=== PATIENT | male | born 1975 | race Caucasian/White ===

== ENCOUNTER 2017-02-23 14:42 | Emergency (ER) | payer BC, OTHER ==
[~2017-02-23] VITALS: Wt 80.0 kg
[~2017-02-23 14:42] MED LIST: CYCL-319 PO; IBUP400T22 PO; TRAM50TA2 PO
--- NOTE | 2017-02-23 15:33 | ERA ---
ER Documentation Chief Complaint Date/Time DATE: 02/23/17 TIME: 15:31 Chief Complaint CHEST PAIN FOR THE PAST FEW WKS. GETTING WORSE TODAY. NO N/V. HPI The patient is a 41-year-old male, presenting to the ER because of intermittent chest pain for more than 2 weeks, worse last night, however it is better now only 1/10. The pain is better with resting, worse with movement. He denies any chest pain with exertion of vomiting or diaphoresis. He has similar symptoms previously. He denies fever, chills, neck pain, dyspnea, abdominal pain, vomiting, dysuria, diarrhea. He smokes a pack a day, drinks socially, denies illicit drug Past medical history: None Past surgical history: Hemorrhoidectomy ROS All systems reviewed and are negative except as per history of present illness. Medications Home Meds Discontinued Reported Medications Ibuprofen* (Ibuprofen*) 400 Mg Tablet, 400 MG PO Q6H Y for PAIN, TAB 04/12/16 Discontinued Scripts Tramadol HCl (Tramadol HCl) 50 Mg Tablet, 25 MG PO Q8, #15 TAB Prov:PATITO VO 04/12/16 Cyclobenzaprine Hcl* (Cyclobenzaprine Hcl*) 10 Mg Tablet, 10 MG PO TID, #15 TAB Prov:PATITO VO 04/12/16 Allergies Allergies: Coded Allergies: No Known Allergy (Verified , 02/23/17) PER WRITTEN ORDER PMhx/Soc History of Surgery: Yes (NASAL SURGERY AND LEFT ELBOW) Anesthesia Reaction: No Hx Neurological Disorder: No Hx Respiratory Disorders: No Hx Cardiac Disorders: No Hx Psychiatric Problems: No Hx Miscellaneous Medical Probl: No Hx Alcohol Use: Yes (OCASSIONAL) Hx Substance Use: No Hx Tobacco Use: Yes (18 CIG A DAY) Physical Exam Vitals Vital Signs Date Time Temp Pulse Resp B/P Pulse Ox O2 Delivery O2 Flow Rate FiO2 02/23/17 14:43 98.6 84 20 130/84 98 Physical Exam Const: No acute distress. Head: Atraumatic. Eyes: Normal Conjunctiva. ENT: Normal External Ears, Nose and Mouth. Neck: Full range of motion. No meningismus. Resp: Clear to auscultation bilaterally. Cardio: Regular rate and rhythm, no murmurs. Abd: Soft, non distended, normal bowel sounds, non tender. Skin: No petechiae or rashes. Back: No midline or flank tenderness. Ext: No cyanosis, or edema. Neur: Awake and alert. No focal deficit Psych: Normal Mood and Affect. Result Diagram: 02/23/17 1525 02/23/17 1525 Results 24 hrs Laboratory Tests Test 02/23/17 15:25 02/23/17 18:00 White Blood Count 8.510^3/ul Red Blood Count 4.9710^6/ul Hemoglobin 15.7g/dl Hematocrit 44.2% Mean Corpuscular Volume 88.9fl Mean Corpuscular Hemoglobin 31.6pg Mean Corpuscular Hemoglobin Concent 35.5g/dl Red Cell Distribution Width 12.9% Platelet Count 43803^3/UL Mean Platelet Volume 9.9fl Neutrophils % 69.3% Lymphocytes % 20.5% Monocytes % 6.7% Eosinophils % 2.4% Basophils % 0.6% Nucleated Red Blood Cells % 0.0/100WBC Neutrophils # 5.910^3/ul Lymphocytes # 1.710^3/ul Monocytes # 0.610^3/ul Eosinophils # 0.210^3/ul Basophils # 0.110^3/ul Nucleated Red Blood Cells # 0.010^3/ul Prothrombin Time 13.5Sec Prothrombin Time Ratio 1.1 INR International Normalized Ratio 1.03 Activated Partial Thromboplast Time 26.9Sec Sodium Level 139mmol/L Potassium Level 4.2mmol/L Chloride Level 104mmol/L Carbon Dioxide Level 25mmol/L Anion Gap 14 Blood Urea Nitrogen 13mg/dl Creatinine 0.84mg/dl Glucose Level 103mg/dl Calcium Level 9.9mg/dl Troponin I < 0.012ng/ml < 0.012ng/ml Procedures/MDM EKG: Read by emergency physician at 2:48 pm Rate/Rhythm: Normal Sinus Rhythm 89 beats/min QRS, ST, T-waves: Nonspecific ST and T abnormality,no PVC, RWA Impression: Abnormal EKG EKG: Read by emergency physician at 3:33 pm Rate/Rhythm: Normal Sinus Rhythm 76 beats/min QRS, ST, T-waves: Nonspecific ST and T abnormality, no PVC, RWA Impression: Abnormal EKG [place] [id number] Radiology Main Line: [phone] DIAGNOSTIC IMAGING REPORT Patient: NUSRAT BHAKTA : 1975 Age: 41 Sex: M [id number] DOS: 02/23/17 1506 Ordering MD: RAYMON OBRIEN MD Location: E/R Room/Bed: PROCEDURE: XR Chest AP portable CLINICAL INDICATION: Left-sided chest pain TECHNIQUE: An AP portable radiograph of the chest was submitted. COMPARISON: 04/12/2016 FINDINGS: Support Hardware: None Cardiovascular: The cardiovascular silhouette appears unremarkable. Lung Connor: A fat pad is again suggested off the cardiac apex. No alveolar infiltrate or nodule is evident. Pleural Spaces: No pneumothorax or pleural effusion is identified. Osseous Structures: The suboptimally visualized osseous elements are grossly intact. Soft Tissues: The soft tissues appear unremarkable. IMPRESSION: Stable and unremarkable portable chest. Physician Eddie Date Time Electronically viewed and signed by Leelee Scott Physician on 02/23/2017 16:14 RH/ CC: RAYMON OBRIEN MD MEDICAL MAKING DECISION: The patient is a 41-year-old male, presenting with acute chest pain of unclear etiology. 2 EKG and 2 troponin are negative. The differential diagnoses considered include but are not limited to acute coronary syndrome, acute myocardial infarction, pericarditis, pulmonary embolism, aortic dissection, pneumonia, pleural effusion, pneumothorax, GERD, chest wall pain. Departure Diagnosis: Primary Impression: Chest pain Condition: Good Comments The patient presents with chest pain and I considered pulmonary embolism, aortic dissection, pneumothorax among other diagnoses. Evaluation for acute coronary syndrome was performed. The HEART score (www.mdcalc.com) was utilized for risk stratification and found to be <= 3. Repeat EKG and troponin @ 3 hours were unchanged. Based on this evaluation the patients risk of major adverse cardiac events is <1%. Shared decision making occurred with patient and the decision has been made to discharge the patient for outpatient evaluation and functional study within 72 hours. The patient's blood pressure was elevated (>120/80) but appears stable without evidence of hypertension emergency or urgency. The patient was counseled about the risks of hypertension and urged to pursue outpatient monitoring and therapy within a week with their primary care physician. I discussed the findings with the patient. I advised the patient to follow-up with the primary physician for referral to cardiology in about 1-2 days, sooner if needed and return if any concern. RAYMON OBRIEN MD Feb 23, 2017 15:33
[2017-02-23 15:40] LABS: ADD SCAN DIFF NO
[2017-02-23 15:42] LABS: BASOPHIL # 0.1 10^3/ul (0.0-0.1); BASOPHILS % 0.6 % (0.0-2.0); EOSINOPHILS # 0.2 10^3/ul (0.0-0.5); EOSINOPHILS % 2.4 % (0.0-7.0); HEMATOCRIT 44.2 % (42.0-52.0); HEMOGLOBIN 15.7 g/dl (14.0-18.0); LYMPHOCYTES # 1.7 10^3/ul (0.8-2.9); LYMPHOCYTES % 20.5 % (15.0-51.0); MEAN CORPUSCULAR HEMOGLOBIN 31.6 pg (29.0-33.0); MEAN CORPUSCULAR HGB CONC 35.5 g/dl (32.0-37.0); MEAN CORPUSCULAR VOLUME 88.9 fl (82.0-101.0); MEAN PLATELET VOLUME 9.9 fl (7.4-10.4); MONOCYTE # 0.6 10^3/ul (0.3-0.9); MONOCYTES % 6.7 % (0.0-11.0); NEUTROPHIL # 5.9 10^3/ul (1.6-7.5); NEUTROPHILS % 69.3 % (39.0-77.0); PLATELET COUNT 195 10^3/UL (140-415); RED BLOOD COUNT 4.97 10^6/ul (4.70-6.10); RED CELL DISTRIBUTION WIDTH 12.9 % (11.5-14.5); WHITE BLOOD COUNT 8.5 10^3/ul (4.8-10.8)
[2017-02-23 15:51] LABS: INR 1.03; PROTIME 13.5 Sec (12.2-14.2); PT RATIO 1.1
[2017-02-23 15:52] LABS: CHLORIDE 104 mmol/L (97-110); PARTIAL THROMBOPLASTIN TIME 26.9 Sec (25.0-35.0); SODIUM 139 mmol/L (135-144)
[2017-02-23 15:53] LABS: POTASSIUM 4.2 mmol/L (3.5-5.1)
[2017-02-23 15:55] LABS: CREATININE 0.84 mg/dl (0.61-1.24)
[2017-02-23 15:56] LABS: ANION GAP 14 (8-16); BLOOD UREA NITROGEN 13 mg/dl (7-20); CALCIUM 9.9 mg/dl (8.4-10.2); CARBON DIOXIDE 25 mmol/L (21-31); GLUCOSE 103 mg/dl (70-220)
[2017-02-23 16:09] LABS: TROPONIN-I < 0.012 ng/ml (0.00-0.12)
--- NOTE | 2017-02-23 16:14 | RADRPT ---
PROCEDURE: XR Chest AP portable CLINICAL INDICATION: Left-sided chest pain TECHNIQUE: An AP portable radiograph of the chest was submitted. COMPARISON: 04/12/2016 FINDINGS: Support Hardware: None Cardiovascular: The cardiovascular silhouette appears unremarkable. Lung Connor: A fat pad is again suggested off the cardiac apex. No alveolar infiltrate or nodule is evident. Pleural Spaces: No pneumothorax or pleural effusion is identified. Osseous Structures: The suboptimally visualized osseous elements are grossly intact. Soft Tissues: The soft tissues appear unremarkable. IMPRESSION: Stable and unremarkable portable chest. Physician Eddie Date Time Electronically viewed and signed by Physician Eddie on 02/23/2017 16:14 /
[2017-02-23 19:36] VITALS: BP 122/72; PULSE 76; RESP 20; TEMP 98.6
== END 2017-02-23 19:37 | disposition home or self-care (01) ==
LOC: E/R 14:42
DX: R07.9 Chest pain, unspecified (principal); F17.210 Nicotine dependence, cigarettes, uncomplicated
CPT/HCPCS: 36415; 71010; 80048; 84484; 85025; 85610; 85730; 93005

== ENCOUNTER 2017-12-26 19:24 | Emergency (ER) | END 2017-12-26 21:07 | disposition home or self-care (01) ==

== ENCOUNTER 2018-10-13 01:59 | Emergency (ER) | END 2018-10-13 04:49 | disposition home or self-care (01) ==